=== PATIENT | male | born 2000 | race Caucasian/White ===

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

== ENCOUNTER 2020-02-27 16:13 | Emergency (ER) | payer BC ==
[~2020-02-27] VITALS: Ht 193 cm; Wt 71.0 kg
[2020-02-27] MEDS ORDERED: LIDOCAINE-MPF 1%, 5ML ONE (19:14)
--- NOTE | 2020-02-27 19:17 | NUR ---
Patient to room from lobby.
[2020-02-27 19:47] VITALS: BP 120/69
[2020-02-27] MEDS ORDERED: NEOSPORIN OINT. PKT 1 PACKET ONE (20:01)
== END 2020-02-27 20:16 | disposition home or self-care (01) ==
LOC: ED 20:15
DX: S61.211A Laceration without foreign body of left index finger without damage to nail, initial encounter (principal); G89.11 Acute pain due to trauma; M79.642 Pain in left hand; M79.89 Other specified soft tissue disorders; X58.XXXA Exposure to other specified factors, initial encounter; Y93.89 Activity, other specified; Y92.098 Other place in other non-institutional residence as the place of occurrence of the external cause; Y99.8 Other external cause status
CPT/HCPCS: 12041; 99284